=== PATIENT | female | born 2005 | race Two or more races ===

== ENCOUNTER 2024-02-21 14:16 | Emergency (ER) | payer OTHER ==
[~2024-02-21] VITALS: Ht 165.1 cm; Wt 63.6 kg
[2024-02-21 14:20] VITALS: BP 108/74; PULSE 86; RESP 18; O2SAT 99
[2024-02-21] MEDS ORDERED: ACETAMINOPHEN 325 MG TAB PO ONE (15:00)
[2024-02-21] MEDS ORDERED: SODIUM CHLORIDE 0.9% 1,000 ML IVB ONE (15:00)
== END 2024-02-21 16:59 | disposition left against medical advice (07) ==
LOC: ER 14:16 → EDBD 14:16 → ER 16:59
DX: O9A.212 Injury, poisoning and certain other consequences of external causes complicating pregnancy, second trimester (principal); S00.531A Contusion of lip, initial encounter; S20.221A Contusion of right back wall of thorax, initial encounter; K31.89 Other diseases of stomach and duodenum; Z3A.27 27 weeks gestation of pregnancy; Z37.9 Outcome of delivery, unspecified; Z79.82 Long term (current) use of aspirin; Y08.89XA Assault by other specified means, initial encounter; Y93.89 Activity, other specified; Y92.89 Other specified places as the place of occurrence of the external cause; Y99.8 Other external cause status
CPT/HCPCS: 76805